=== PATIENT | female | born 1975 | race Caucasian/White ===

== ENCOUNTER 2020-09-22 20:48 | Emergency (ER) | payer SELFPAY | END 2020-09-22 21:24 | disposition home or self-care (01) | LOC: BURERS 20:48 | DX: S92.515A Nondisplaced fracture of proximal phalanx of left lesser toe(s), initial encounter for closed fracture (principal); Z87.891 Personal history of nicotine dependence; W22.8XXA Striking against or struck by other objects, initial encounter ==